=== PATIENT | male | born 1940 | race Caucasian/White ===

== ENCOUNTER → 2018-05-15 | Outpatient (CLI) | payer OTHER ==
[~2018-05-15] MED LIST: AEC81 PO; BISO5TAB2 PO; FLUT1AER IH; LOSA100T58 PO; ROSU20TA PO
== END | disposition home or self-care (01) ==
LOC: RAH 11:32
PROVIDERS: ATTEND Family Medicine
DX: M47.816 Spondylosis without myelopathy or radiculopathy, lumbar region (principal); D18.00 Hemangioma unspecified site
CPT/HCPCS: 72148

== ENCOUNTER 2018-11-28 04:16 | Emergency (ER) | payer OTHER ==
[~2018-11-28 04:16] MED LIST changes: -BISO5TAB2 PO; +BISO5TAB4 PO; -ROSU20TA PO; +ROSU20TA23 PO
[2018-11-28 04:36] LABS: BASOPHILS % (AUTO) 0.9 % (0.0-5.0); EOSINOPHILS % (AUTO) 2.9 % (0.0-8.0); HEMATOCRIT 39.4 % (42-54); LYMPHOCYTES % (AUTO) 15.9 % (21.0-51.0); MEAN CORPUSCULAR HEMOGLOBIN 29.4 pg (27.0-33.0); MEAN CORPUSCULAR HGB CONC 33.9 g/dL (32.0-36.0); MEAN CORPUSCULAR VOLUME 86.7 fL (79-99); MONOCYTES % (AUTO) 5.8 % (3.0-13.0); NEUTROPHILS % (AUTO) 74.5 % (40.0-77.0); PLATELET COUNT (AUTO) 216 K/uL (130-400); RED BLOOD CELL COUNT(AUTO) 4.54 MIL/uL (4.50-6.20); RED CELL DISTRIBUTION WIDTH 14.7 % (11.0-15.5); WHITE BLOOD COUNT (AUTO) 9.9 K/uL (4.8-10.8)
[2018-11-28 04:41] LABS: CREATININE 1.1 mg/dL (0.5-1.5); POTASSIUM 4.1 mmol/L (3.5-5.1)
[2018-11-28 04:51] LABS: B-TYPE NATRIURETIC PEPTIDE 111 pg/mL (0-100)
[2018-11-28 04:53] LABS: ALBUMIN 3.6 g/dL (3.5-5.0); BILIRUBIN,TOTAL 0.4 mg/dL (0.2-1.0); TOTAL PROTEIN, SERUM 7.2 g/dL (6.0-8.3)
[2018-11-28 04:58] LABS: INR 1.05 (0.85-1.15); PARTIAL THROMBOPLASTIN TIME 27.4 SEC (26.3-35.5)
[2018-11-28] MEDS ORDERED: IPRATROPIUM 0.5 MG/2.5 ML INH IH ONE (05:01)
[2018-11-28] MEDS ORDERED: METHYLPREDNISOLONE SOD SUCC 125MG/2ML VIAL ONE (05:15)
[2018-11-28] MEDS ORDERED: SODIUM CHLORIDE 0.9% 1000ML 1,000 ML IV ONE (05:15)
[2018-11-28 05:22] LABS: ABG BASE EXCESS -0.2 mmol/L (-2.0-3.0); ABG HCO3 24.8 mmol/L (21.0-28.0); ABG PCO2 42 mmHg (35-48)
== END 2018-11-28 06:50 | disposition home or self-care (01) ==
LOC: EDH 04:16
DX: J44.1 Chronic obstructive pulmonary disease with (acute) exacerbation (principal); I10 Essential (primary) hypertension; I48.91 Unspecified atrial fibrillation; Z88.6 Allergy status to analgesic agent; Z88.8 Allergy status to other drugs, medicaments and biological substances; Z95.0 Presence of cardiac pacemaker
CPT/HCPCS: 36415; 36600; 71045; 80053; 82550; 82803; 83874; 83880; 84484; 85025; 85610; 85730; 93005; 94640; 96374; 99284; J2930; J7030

== ENCOUNTER 2019-01-21 09:37 | Inpatient (IN) | payer OTHER ==
[~2019-01-21] VITALS: Ht 175.3 cm; Wt 70.1 kg
[~2019-01-21 09:37] MED LIST changes: +APIX5TAB PO; -BISO5TAB4 PO; +DRON400T2 PO; +LEVA0.6333 IH; -LOSA100T58 PO
[2019-01-21 09:56] LABS: BASOPHILS % (AUTO) 0.9 % (0.0-5.0); EOSINOPHILS % (AUTO) 1.2 % (0.0-8.0); HEMATOCRIT 42.7 % (42-54); LYMPHOCYTES % (AUTO) 21.5 % (21.0-51.0); MEAN CORPUSCULAR HEMOGLOBIN 29.6 pg (27.0-33.0); MEAN CORPUSCULAR HGB CONC 32.8 g/dL (32.0-36.0); MEAN CORPUSCULAR VOLUME 90.1 fL (79-99); MONOCYTES % (AUTO) 8.3 % (3.0-13.0); NEUTROPHILS % (AUTO) 68.1 % (40.0-77.0); PLATELET COUNT (AUTO) 239 K/uL (130-400); RED BLOOD CELL COUNT(AUTO) 4.74 MIL/uL (4.50-6.20); RED CELL DISTRIBUTION WIDTH 15.6 % (11.0-15.5); WHITE BLOOD COUNT (AUTO) 13.4 K/uL (4.8-10.8)
[2019-01-21 10:11] LABS: ALBUMIN 3.7 g/dL (3.5-5.0); BILIRUBIN,TOTAL 0.3 mg/dL (0.2-1.0); CREATININE 1.4 mg/dL (0.5-1.5); POTASSIUM 4.3 mmol/L (3.5-5.1); TOTAL PROTEIN, SERUM 7.6 g/dL (6.0-8.3)
[2019-01-21] MEDS ORDERED: ASPIRIN 325 MG TABLET ONE (11:04)
[2019-01-21] MEDS ORDERED: IPRATROPIUM 0.5 MG/2.5 ML INH IH ONE (11:46)
[2019-01-21] MEDS ORDERED: METHYLPREDNISOLONE SOD SUCC 125MG/2ML VIAL ONE (12:08)
[2019-01-21] MEDS ORDERED: SODIUM CHLORIDE 0.9% 1000ML 1,000 ML IV ONE (12:10)
[2019-01-21] MEDS ORDERED: GUAIFENESIN-DM 200/20 MG 10 ML PO PRN (15:00)
[2019-01-21] MEDS ORDERED: HYDRALAZINE HCL 20 MG/ML VIAL IV PRN (15:00)
[2019-01-21] MEDS ORDERED: ONDANSETRON HCL 4 MG/2 ML VIAL IV PRN (15:00)
[2019-01-21] MEDS: CEFTRIAXONE SODIUM 1 GM IV SCH (15:00)
[2019-01-21] MEDS ORDERED: ACETAMINOPHEN 325 MG TAB PO PRN (15:00)
[2019-01-21] MEDS ORDERED: FUROSEMIDE 10 MG/ML 2ML VIAL IV SCH (16:00)
[2019-01-21] MEDS ORDERED: CEFTRIAXONE SODIUM 1 GM ONE (16:52)
[2019-01-21] MEDS ORDERED: FUROSEMIDE 10 MG/ML 2ML VIAL ONE (16:52)
[2019-01-21] MEDS ORDERED: SODIUM CHLORIDE 0.9% 50 ML IV ONE (16:54)
[2019-01-21] MEDS: DRONEDARONE HYDROCHLORIDE 400 MG TABLET PO SCH (17:00)
[2019-01-21] MEDS ORDERED: IPRATROPIUM/ALBUTEROL SULFATE 3 ML SOLUTION IH SCH (18:00)
[2019-01-21] MEDS: IPRATROPIUM 0.5 MG/2.5 ML INH IH SCH ×2 (18:02→22:04)
[2019-01-21] MEDS: ATORVASTATIN CALCIUM 40 MG TABLET PO SCH (21:00)
[2019-01-21] MEDS ORDERED: METHYLPREDNISOLONE SOD SUCC 40MG/ML 1ML IVP SCH (21:00)
[2019-01-21] MEDS: METHYLPREDNISOLONE SOD SUCC 40MG/ML 1ML IVP SCH (21:00)
[2019-01-21] MEDS: FUROSEMIDE 10 MG/ML 2ML VIAL IV SCH (21:00)
[2019-01-21] MEDS: ASPIRIN 81 MG EC TAB PO SCH (21:00)
[2019-01-21] MEDS ORDERED: METHYLPREDNISOLONE SOD SUCC 40MG/ML 1ML ONE (21:19)
[2019-01-21] MEDS ORDERED: ATORVASTATIN CALCIUM 20 MG TABLET ONE (21:20)
[2019-01-21 23:04] LABS: APPEARANCE,URINE Clear (CLEAR); BILIRUBIN,URINE Negative (NEGATIVE); COLOR,URINE Yellow (YELLOW); GLUCOSE, URINE (UA) Negative (NEGATIVE); KETONES,URINE Negative (NEGATIVE); LEUKOCYTE ESTERASE ,URINE Negative (NEGATIVE); NITRATE,URINE Negative (NEGATIVE); OCCULT BLOOD,URINE Negative (NEGATIVE); PROTEIN,URINE Negative (NEGATIVE); UROBILINOGEN,URINE 0.2 mg/dL (0.2-1.0)
[2019-01-22] MEDS ORDERED: PRED20TA3 PO (01:40)
[2019-01-22] MEDS ORDERED: METO25TA6 PO (01:40)
[2019-01-22] MEDS ORDERED: FLUT1BLS3 IH (01:40)
[2019-01-22] MEDS ORDERED: RANI150T7 PO (01:40)
[2019-01-22] MEDS ORDERED: AZIT250T9 PO (01:40)
[2019-01-22] MEDS ORDERED: ASPI-555 PO (01:41)
[2019-01-22] MEDS: IPRATROPIUM 0.5 MG/2.5 ML INH IH SCH ×6 (01:54→22:14)
[2019-01-22] MEDS ORDERED: FUROSEMIDE 10 MG/ML 2ML VIAL ONE ×2 (04:28→08:50)
[2019-01-22 04:46] LABS: BASOPHILS % (AUTO) 0.3 % (0.0-5.0); HEMATOCRIT 37.3 % (42-54); LYMPHOCYTES % (AUTO) 7.5 % (21.0-51.0); MEAN CORPUSCULAR HEMOGLOBIN 29.1 pg (27.0-33.0); MONOCYTES % (AUTO) 0.9 % (3.0-13.0); NEUTROPHILS % (AUTO) 91.3 % (40.0-77.0); PLATELET COUNT (AUTO) 201 K/uL (130-400); RED BLOOD CELL COUNT(AUTO) 4.24 MIL/uL (4.50-6.20); RED CELL DISTRIBUTION WIDTH 15.7 % (11.0-15.5); WHITE BLOOD COUNT (AUTO) 6.6 K/uL (4.8-10.8)
[2019-01-22 05:04] LABS: ALBUMIN 3.1 g/dL (3.5-5.0); BILIRUBIN,TOTAL 0.4 mg/dL (0.2-1.0); CREATININE 1.1 mg/dL (0.5-1.5); POTASSIUM 4.3 mmol/L (3.5-5.1); TOTAL PROTEIN, SERUM 6.4 g/dL (6.0-8.3)
[2019-01-22] MEDS ORDERED: IPRATROPIUM 0.5 MG/2.5 ML INH IH ONE ×3 (06:49→13:38)
[2019-01-22 07:30] VITALS: BP 128/57
[2019-01-22] MEDS: DRONEDARONE HYDROCHLORIDE 400 MG TABLET PO SCH ×3 (08:00→17:40)
[2019-01-22] MEDS ORDERED: METHYLPREDNISOLONE SOD SUCC 40MG/ML 1ML ONE (08:50)
[2019-01-22] MEDS ORDERED: ENOXAPARIN SODIUM 30 MG/0.3 ML SQ ONE (08:50)
[2019-01-22] MEDS ORDERED: FAMOTIDINE/PF 20 MG/2 ML VIAL IV ONE (08:51)
[2019-01-22] MEDS ORDERED: ENOXAPARIN SODIUM 30 MG/0.3 ML SQ SCH (09:00)
[2019-01-22] MEDS: FAMOTIDINE/PF 20 MG/2 ML VIAL IV SCH (09:23)
[2019-01-22] MEDS: FUROSEMIDE 10 MG/ML 2ML VIAL IV SCH ×2 (09:23→20:52)
[2019-01-22] MEDS: METHYLPREDNISOLONE SOD SUCC 40MG/ML 1ML IVP SCH ×2 (09:23→17:40)
[2019-01-22 10:00] VITALS: BP 124/66
[2019-01-22] MEDS: APIXABAN 5 MG TABLET PO SCH ×2 (10:21→20:51)
[2019-01-22] MEDS ORDERED: IOHEXOL 350 MG/ML 100ML INFUS..BTL IV ONE (11:10)
--- NOTE | 2019-01-22 11:20 | NUR ---
SPOKE WITH SHEFALI TRINH, ANESTHESIA, RE:CARDIOVERSION. VERBALIZED UNDERSTANDING.
[2019-01-22 15:00] VITALS: BP 146/78
--- NOTE | 2019-01-22 15:46 | NUR ---
DR. Cynthia MADRIGAL IN ROOM SPEAKING WITH PT. AND PT.'S SPOUSE AT BEDSIDE RE:CANCELLATION OF CARDIOVERSION AND MEDICATION THERAPY TO BE INITIATED. QUESTIONS ANSWERED BY DR. Cynthia MADRIGAL, PT. AND SPOUSE AT BEDSIDE VERBALIZED MUTUAL UNDERSTANDING.
[2019-01-22] MEDS ORDERED: CEFTRIAXONE SODIUM 1 GM ONE (15:58)
[2019-01-22] MEDS: CEFTRIAXONE SODIUM 1 GM IV SCH (16:03)
--- NOTE | 2019-01-22 16:12 | NUR ---
TO ROOM 205 VIA BED WITH BELONGINGS ACCOMPANIED BY THIS NURSE. PT. DENIES ANY C/O SOB, DENIES ANY CURRENT PAIN ON TRANSPORT.
[2019-01-22 16:23] VITALS: BP 165/99
[2019-01-22] MEDS: VERAPAMIL HCL 80 MG TABLET PO SCH ×2 (17:40→23:16)
[2019-01-22 19:55] VITALS: BP 149/85
[2019-01-22] MEDS: ASPIRIN 81 MG EC TAB PO SCH (20:51)
[2019-01-22] MEDS: ATORVASTATIN CALCIUM 40 MG TABLET PO SCH (20:51)
[2019-01-23 00:04] VITALS: BP 116/95
[2019-01-23] MEDS: METHYLPREDNISOLONE SOD SUCC 40MG/ML 1ML IVP SCH ×2 (01:12→10:02)
[2019-01-23] MEDS: IPRATROPIUM 0.5 MG/2.5 ML INH IH SCH ×3 (02:14→10:23)
[2019-01-23 04:04] VITALS: BP 130/90
[2019-01-23 04:47] LABS: BASOPHILS % (AUTO) 0.1 % (0.0-5.0); EOSINOPHILS % (AUTO) 0.1 % (0.0-8.0); HEMATOCRIT 39.3 % (42-54); LYMPHOCYTES % (AUTO) 4.5 % (21.0-51.0); MEAN CORPUSCULAR HEMOGLOBIN 29.4 pg (27.0-33.0); MEAN CORPUSCULAR VOLUME 88.9 fL (79-99); MONOCYTES % (AUTO) 2.2 % (3.0-13.0); NEUTROPHILS % (AUTO) 93.1 % (40.0-77.0); PLATELET COUNT (AUTO) 216 K/uL (130-400); RED BLOOD CELL COUNT(AUTO) 4.42 MIL/uL (4.50-6.20); RED CELL DISTRIBUTION WIDTH 15.4 % (11.0-15.5); WHITE BLOOD COUNT (AUTO) 12.2 K/uL (4.8-10.8)
[2019-01-23 04:57] LABS: ALBUMIN 3.2 g/dL (3.5-5.0); BILIRUBIN,TOTAL 0.3 mg/dL (0.2-1.0); CREATININE 1.2 mg/dL (0.5-1.5); TOTAL PROTEIN, SERUM 6.4 g/dL (6.0-8.3)
[2019-01-23 07:38] VITALS: BP 128/82
[2019-01-23] MEDS ORDERED: VERA120T13 PO ×2 (08:54)
[2019-01-23] MEDS: FAMOTIDINE/PF 20 MG/2 ML VIAL IV SCH (09:00)
[2019-01-23] MEDS: DRONEDARONE HYDROCHLORIDE 400 MG TABLET PO SCH (10:01)
[2019-01-23] MEDS: APIXABAN 5 MG TABLET PO SCH (10:01)
[2019-01-23] MEDS: VERAPAMIL HCL 80 MG TABLET PO SCH (10:01)
[2019-01-23] MEDS: FUROSEMIDE 10 MG/ML 2ML VIAL IV SCH (10:02)
[2019-01-23] MEDS ORDERED: AMOX-429 PO ×2 (11:06)
[2019-01-23] MEDS ORDERED: IPRNEB IH ×2 (11:06)
[2019-01-23 11:54] VITALS: BP 138/76
--- NOTE | 2019-01-23 16:00 | NUR ---
Patient changed his mind about receiving FLu vaccine. He voiced that he will just get it in [facility].
--- NOTE | 2019-01-23 16:10 | NUR ---
DC PLAN PATIENT DISCHARGED NO NEEDS VERBALIZED BY NURSING STAFF. Addendum: 01/23/19 at 1623 by MARIANNE JAIN RN CM Amended: Links added.
[2019-01-27] MEDS ORDERED: VERA180T12 PO ×2 (08:32)
[2019-01-27] MEDS ORDERED: AMOX-429 PO ×2 (14:08)
== END 2019-01-23 12:30 | disposition home or self-care (01) | DRG 291 ==
LOC: EDH 09:37 → EDHIP 14:58 → 2AH 01-22 16:24
PROVIDERS: ADMIT Hospitalist; ATTEND Hospitalist
DX: I11.0 Hypertensive heart disease with heart failure (principal); I50.21 Acute systolic (congestive) heart failure; J44.1 Chronic obstructive pulmonary disease with (acute) exacerbation; I48.0 Paroxysmal atrial fibrillation; D72.829 Elevated white blood cell count, unspecified; Z82.0 Family history of epilepsy and other diseases of the nervous system; E16.2 Hypoglycemia, unspecified; Z99.81 Dependence on supplemental oxygen; I95.9 Hypotension, unspecified; I25.10 Atherosclerotic heart disease of native coronary artery without angina pectoris; E78.5 Hyperlipidemia, unspecified; Z79.01 Long term (current) use of anticoagulants; Z79.899 Other long term (current) drug therapy; Z82.3 Family history of stroke; Z82.49 Family history of ischemic heart disease and other diseases of the circulatory system; Z82.5 Family history of asthma and other chronic lower respiratory diseases; Z83.3 Family history of diabetes mellitus; Z95.0 Presence of cardiac pacemaker; Z95.1 Presence of aortocoronary bypass graft; Z87.891 Personal history of nicotine dependence; Z88.5 Allergy status to narcotic agent; Z88.8 Allergy status to other drugs, medicaments and biological substances
CPT/HCPCS: 36415; 71045; 71250; 71275; 80053; 81003; 82550; 82948; 83735; 83880; 84484; 85025; 85378; 85610; 85730; 87040; 93005; 94640; 94664; 99291; G0378; J0696; J1650; J1940; J2920; J2930; J3490; J7030; Q2035; Q9967

== ENCOUNTER 2019-01-25 16:42 | Inpatient (IN) | payer OTHER ==
[~2019-01-25] VITALS: Ht 175.3 cm; Wt 72.6 kg
[~2019-01-25 16:42] MED LIST changes: +AMOX-429 PO; +ASPI-555 PO; +FLUT1BLS3 IH; +IPRNEB IH; -LEVA0.6333 IH; +PRED20TA3 PO; +RANI150T7 PO; +VERA120T13 PO
[2019-01-25 17:21] LABS: BASOPHILS % (AUTO) 0.5 % (0.0-5.0); EOSINOPHILS % (AUTO) 0.4 % (0.0-8.0); HEMATOCRIT 42.2 % (42-54); LYMPHOCYTES % (AUTO) 14.3 % (21.0-51.0); MEAN CORPUSCULAR HEMOGLOBIN 29.2 pg (27.0-33.0); MEAN CORPUSCULAR HGB CONC 32.9 g/dL (32.0-36.0); MEAN CORPUSCULAR VOLUME 88.7 fL (79-99); MONOCYTES % (AUTO) 8.3 % (3.0-13.0); NEUTROPHILS % (AUTO) 76.5 % (40.0-77.0); NUCLEATED RED BLOOD CELLS 0.1 % (0.0-0.19); PLATELET COUNT (AUTO) 255 K/uL (130-400); RED BLOOD CELL COUNT(AUTO) 4.76 MIL/uL (4.50-6.20); WHITE BLOOD COUNT (AUTO) 12.3 K/uL (4.8-10.8)
[2019-01-25 17:32] LABS: INR 1.03 (0.85-1.15); PARTIAL THROMBOPLASTIN TIME 26.8 SEC (26.3-35.5); PROTHROMBIN TIME 10.8 SEC (9.6-11.6)
[2019-01-25 17:38] LABS: ALBUMIN 3.5 g/dL (3.5-5.0); BILIRUBIN,TOTAL 0.5 mg/dL (0.2-1.0); CREATININE 1.1 mg/dL (0.5-1.5); POTASSIUM 4.6 mmol/L (3.5-5.1); TOTAL PROTEIN, SERUM 6.8 g/dL (6.0-8.3)
[2019-01-25 17:47] LABS: B-TYPE NATRIURETIC PEPTIDE 233 pg/mL (0-100)
[2019-01-25] MEDS ORDERED: IPRATROPIUM 0.5 MG/2.5 ML INH IH ONE (18:51)
[2019-01-25] MEDS ORDERED: NON-FORMULARY MEDICATION 1 EACH (Ranitidine HCl 150 MG) PO SCH (20:45)
[2019-01-25] MEDS ORDERED: LABETALOL 20 MG/4 ML DISP.SYRIN IV PRN (20:45)
[2019-01-25] MEDS ORDERED: PREDNISONE 20 MG TABLET PO SCH (20:45)
[2019-01-25] MEDS ORDERED: RANITIDINE HCL 15 MG/1 ML ONE (20:56)
[2019-01-25] MEDS ORDERED: APIXABAN 2.5 MG TABLET PO ONE (20:56)
[2019-01-25] MEDS ORDERED: AMOXICILLIN/POTASSIUM CLAV 875-125 TABLET PO ONE (20:57)
[2019-01-25] MEDS ORDERED: ASPIRIN 81 MG EC TAB ONE (20:57)
[2019-01-25] MEDS ORDERED: PREDNISONE 20 MG TABLET ONE (20:57)
[2019-01-25] MEDS: ASPIRIN 81 MG EC TAB PO SCH (21:00)
[2019-01-25] MEDS: ATORVASTATIN CALCIUM 40 MG TABLET PO SCH (21:00)
[2019-01-25] MEDS: APIXABAN 5 MG TABLET PO SCH (21:00)
[2019-01-25] MEDS: AMOXICILLIN/POTASSIUM CLAV 875-125 TABLET PO SCH (21:00)
[2019-01-25] MEDS: IPRATROPIUM 0.5 MG/2.5 ML INH IH SCH (21:11)
[2019-01-25 22:14] VITALS: BP 123/79
[2019-01-26] VITALS (7 sets, daily range): BP systolic 114–134; BP diastolic 63–81
[2019-01-26] MEDS: IPRATROPIUM 0.5 MG/2.5 ML INH IH SCH ×6 (02:30→22:05)
[2019-01-26] MEDS: APIXABAN 5 MG TABLET PO SCH ×2 (08:52→20:57)
[2019-01-26] MEDS: DRONEDARONE HYDROCHLORIDE 400 MG TABLET PO SCH ×2 (08:52→17:19)
[2019-01-26] MEDS: AMOXICILLIN/POTASSIUM CLAV 875-125 TABLET PO SCH ×2 (08:52→20:57)
[2019-01-26] MEDS ORDERED: NON-FORMULARY MEDICATION 1 EACH (Fluticasone/Umeclidin/Vilanter (Trelegy Ellipta 100-62.5- IH SCH (09:00)
[2019-01-26] MEDS ORDERED: FLU VACC QS2019-20 36MOS UP/PF 60 MCG/0.5 ML ML IM ONE (09:00)
[2019-01-26] MEDS ORDERED: VERAPAMIL HCL 240 MG SRTAB PO SCH (09:00)
[2019-01-26] MEDS ORDERED: POLYETHYLENE GLYCOL 3350 17 GM POWD.PACK PO SCH (11:00)
[2019-01-26] MEDS ORDERED: VERAPAMIL HCL 80 MG TABLET PO SCH (11:00)
[2019-01-26] MEDS ORDERED: FLUTICASONE/VILANTEROL 1 EACH AER.POW.BA IH SCH (12:00)
[2019-01-26] MEDS ORDERED: POLYETHYLENE GLYCOL 3350 17 GM POWD.PACK PO PRN (12:45)
[2019-01-26] MEDS ORDERED: OXYMETAZOLINE HCL SPRAY 15 ML BOTTLE EN PRN (13:15)
--- NOTE | 2019-01-26 15:35 | NUR ---
RD NOTIFICATION Dx: Tachycardia. Hx: COPD, AFIB, HTN. Diet: Heart Healthy. PO intake 75% and appetite is improving as per pt. No difficulty chewing or swallowing. No complaints of N/V/D. Pt with Hx of Constipation, takes stool softeners regularly. No significant weight changes noted. RD recommends continue current diet Offer Ensure QD RD will follow up and monitor as needed, thank you. Addendum: 01/26/19 at [address] Amended: Links added.
[2019-01-26] MEDS: VERAPAMIL HCL 80 MG TABLET PO SCH ×2 (17:18→22:22)
[2019-01-26] MEDS: BUDESONIDE 0.5 MG/2 ML INH IH SCH (18:38)
[2019-01-26] MEDS: ASPIRIN 81 MG EC TAB PO SCH (20:57)
[2019-01-26] MEDS: ATORVASTATIN CALCIUM 40 MG TABLET PO SCH (20:58)
[2019-01-26] MEDS ORDERED: FAMOTIDINE 20MG TAB 20 MG TAB ONE (22:59)
[2019-01-26] MEDS ORDERED: RANITIDINE HCL 15 MG/1 ML PO SCH (23:00)
[2019-01-26] MEDS: FAMOTIDINE 20MG TAB 20 MG TAB PO SCH (23:54)
[2019-01-27] MEDS: IPRATROPIUM 0.5 MG/2.5 ML INH IH SCH ×4 (02:07→13:20)
[2019-01-27 03:08] VITALS: BP 131/73
[2019-01-27] MEDS: VERAPAMIL HCL 80 MG TABLET PO SCH ×2 (06:08→13:15)
[2019-01-27] MEDS: BUDESONIDE 0.5 MG/2 ML INH IH SCH (06:34)
[2019-01-27 07:00] VITALS: BP 112/66
[2019-01-27] MEDS ORDERED: VERA180T12 PO (08:32)
[2019-01-27] MEDS: FAMOTIDINE 20MG TAB 20 MG TAB PO SCH (09:00)
[2019-01-27] MEDS: AMOXICILLIN/POTASSIUM CLAV 875-125 TABLET PO SCH (09:53)
[2019-01-27] MEDS: APIXABAN 5 MG TABLET PO SCH (09:54)
[2019-01-27] MEDS: DRONEDARONE HYDROCHLORIDE 400 MG TABLET PO SCH (09:55)
[2019-01-27 11:00] VITALS: BP 139/85
[2019-01-27] MEDS ORDERED: AMOX-429 PO (14:08)
[2019-01-27] MEDS ORDERED: FLU VACC QS2019-20 36MOS UP/PF 60 MCG/0.5 ML ML IM ONE (14:52)
--- NOTE | 2019-01-27 14:55 | NUR ---
DISCHARGE VERBAL & WRITTEN DISCHARGE INSTRUCTIONS REVIEWED & GIVEN TO PT & SPOUSE. QUESTIONS ENCOURAGED & CLARIFIED. PROPER CARE & MGT OF AFIB REVIEWED. NEW PRESCRIBED MEDICATIONS REVIEWED. PRESCRIPTION X 2 GIVEN TO PT; SIGNED COPY PLACED IN CHART. TELE MAEVE REMOVED. IV DISCONTINUED. PT & SPOUSE TO GATHER PERSONAL BELONGINGS. WILL NOTIFY STAFF WHEN READY TO BE TAKEN TO PRIVATE VEHICLE.
--- NOTE | 2019-01-27 15:15 | NUR ---
DISCHARGE PT TAKEN TO PRIVATE VEHICLE VIA WC BY Saul CALVIN PCP, ACCOMPANIED BY SPOUSE. NO DISTRESS NOTED.
--- NOTE | 2019-01-28 09:56 | NUR ---
DC PLAN PATIENT IN BATHROOM WHEN VISITED. NO NEEDS VERBALIZED BY NURSING STAFF. PATIENT DISCHARGED HOME ALREADY GONE. Addendum: 01/28/19 at 1002 by MARIANNE JAIN RN CM Amended: Links added.
== END 2019-01-27 15:23 | disposition home or self-care (01) | DRG 202 ==
LOC: EDH 16:42 → EDHIP 20:22 → 2DH 22:04
PROVIDERS: ADMIT Internal Medicine; ATTEND Internal Medicine
DX: J20.9 Acute bronchitis, unspecified (principal); I48.19 Other persistent atrial fibrillation; D68.69 Other thrombophilia; J44.1 Chronic obstructive pulmonary disease with (acute) exacerbation; J44.0 Chronic obstructive pulmonary disease with (acute) lower respiratory infection; I45.2 Bifascicular block; I48.92 Unspecified atrial flutter; T45.515A Adverse effect of anticoagulants, initial encounter; I10 Essential (primary) hypertension; I25.10 Atherosclerotic heart disease of native coronary artery without angina pectoris; E78.5 Hyperlipidemia, unspecified; R04.0 Epistaxis; I45.10 Unspecified right bundle-branch block; Z82.49 Family history of ischemic heart disease and other diseases of the circulatory system; Z83.3 Family history of diabetes mellitus; Z86.79 Personal history of other diseases of the circulatory system; Z79.01 Long term (current) use of anticoagulants; Z95.1 Presence of aortocoronary bypass graft; Y92.89 Other specified places as the place of occurrence of the external cause; Z82.0 Family history of epilepsy and other diseases of the nervous system; Z82.3 Family history of stroke; Z82.5 Family history of asthma and other chronic lower respiratory diseases; Z87.891 Personal history of nicotine dependence; Z95.0 Presence of cardiac pacemaker; Z95.5 Presence of coronary angioplasty implant and graft; Z99.81 Dependence on supplemental oxygen; Z23 Encounter for immunization
CPT/HCPCS: 36415; 71045; 80053; 82550; 83880; 84484; 85025; 85610; 85730; 93005; 94640; 94664; G0378; Q2035

== ENCOUNTER 2019-02-20 05:43 | Observation (INO) | payer OTHER ==
[2019-02-17 09:09] VITALS: BP 135/66
[2019-02-17 09:22] LABS: BASOPHILS % (AUTO) 0.5 % (0.0-5.0); EOSINOPHILS % (AUTO) 1.4 % (0.0-8.0); HEMATOCRIT 39.9 % (42-54); LYMPHOCYTES % (AUTO) 14.8 % (21.0-51.0); MEAN CORPUSCULAR HEMOGLOBIN 29.4 pg (27.0-33.0); MEAN CORPUSCULAR HGB CONC 33.1 g/dL (32.0-36.0); MONOCYTES % (AUTO) 7.1 % (3.0-13.0); NEUTROPHILS % (AUTO) 76.2 % (40.0-77.0); PLATELET COUNT (AUTO) 222 K/uL (130-400); RED BLOOD CELL COUNT(AUTO) 4.48 MIL/uL (4.50-6.20); RED CELL DISTRIBUTION WIDTH 15.4 % (11.0-15.5); WHITE BLOOD COUNT (AUTO) 10.3 K/uL (4.8-10.8)
[2019-02-17 09:29] LABS: POTASSIUM 4.3 mmol/L (3.5-5.1)
[2019-02-17 09:32] LABS: INR 1.05 (0.85-1.15); PARTIAL THROMBOPLASTIN TIME 28.5 SEC (26.3-35.5)
[2019-02-20] VITALS (19 sets, daily range): BP systolic 112–177; BP diastolic 57–90
[~2019-02-20] VITALS: Ht 177.8 cm; Wt 71.8 kg
[2019-02-20] MEDS: CEFAZOLIN SODIUM 1 GM VIAL IVP SCH (05:00)
[~2019-02-20 05:43] MED LIST changes: -AEC81 PO; -AMOX-429 PO; -PRED20TA3 PO; -RANI150T7 PO; -VERA120T13 PO; +VERA180T12 PO
[2019-02-20] MEDS ORDERED: SODIUM CHLORIDE 0.9% 1000ML 1,000 ML IV ONE (06:45)
[2019-02-20] MEDS ORDERED: LIDOCAINE HCL MPF 1% 5ML VIAL ONE (13:03)
[2019-02-20] MEDS ORDERED: NOREPINEPHRINE BITARTRATE 1 MG/1 ML ML IV ONE (13:03)
[2019-02-20] MEDS ORDERED: MIDAZOLAM HCL 1 MG/ML 2ML VIAL ONE (13:03)
[2019-02-20] MEDS ORDERED: ROCURONIUM 10MG/1ML SYR 10 MG/ML ML ONE (13:04)
[2019-02-20] MEDS ORDERED: PROPOFOL 10 MG/ML 20ML VIAL IV ONE (13:04)
[2019-02-20] MEDS ORDERED: LIDOCAINE HCL 1% 20 ML VIAL ONE (13:12)
[2019-02-20] MEDS ORDERED: PHENYLEPHRINE HCL 10 MG/ML 1ML VIAL IV ONE ×2 (13:29→13:45)
[2019-02-20] MEDS ORDERED: BUPIVACAINE/PF 0.25% 30ML VIAL IJ ONE (13:35)
[2019-02-20] MEDS ORDERED: LIDOCAINE HCL 1% MDV 50ML VIAL ONE (13:35)
[2019-02-20] MEDS ORDERED: CEFAZOLIN SODIUM 1 GM VIAL ONE (13:36)
[2019-02-20] MEDS ORDERED: IOHEXOL-350 50ML VIAL IV ONE (14:08)
[2019-02-20] MEDS ORDERED: LIDOCAINE HCL 2% 20ML ONE (15:57)
[2019-02-20] MEDS ORDERED: GLYCOPYRROLATE 0.2 MG/ML 5 ML VIAL ONE (16:59)
[2019-02-20] MEDS ORDERED: NEOSTIGMINE 5MG/5ML SYR IV ONE (16:59)
[2019-02-20] MEDS ORDERED: HYDRALAZINE HCL 20 MG/ML VIAL ONE (17:08)
[2019-02-20] MEDS: IPRATROPIUM 0.5 MG/2.5 ML INH IH SCH ×2 (18:01→22:00)
[2019-02-20] MEDS: BUDESONIDE 0.5 MG/2 ML INH IH SCH (18:01)
[2019-02-20] MEDS ORDERED: ACETAMINOPHEN EXTRA STRENGTH 500 MG TABLET PO PRN (19:45)
[2019-02-20] MEDS ORDERED: TRAMADOL HCL 50 MG TABLET PO PRN (19:45)
[2019-02-20] MEDS ORDERED: ONDANSETRON HCL 4 MG/2 ML VIAL IVP PRN (19:45)
[2019-02-20] MEDS: FAMOTIDINE 20MG TAB 20 MG TAB PO SCH (20:45)
[2019-02-20] MEDS: TRAMADOL HCL 50 MG TABLET PO PRN (20:46)
[2019-02-20] MEDS ORDERED: ATORVASTATIN CALCIUM 40 MG TABLET PO SCH (21:00)
[2019-02-20 21:15] LABS: ABG BASE EXCESS -0.1 mmol/L (-2.0-3.0); ABG HCO3 24.5 mmol/L (21.0-28.0); ABG OXYGEN SATURATION 98.1 % (95.0-99.0); ABG PCO2 40 mmHg (35-48)
[2019-02-21 00:28] VITALS: BP 107/65
[2019-02-21] MEDS: IPRATROPIUM 0.5 MG/2.5 ML INH IH SCH ×3 (01:15→10:01)
[2019-02-21 03:53] VITALS: BP 100/61
[2019-02-21 04:05] LABS: BASOPHILS % (AUTO) 0.4 % (0.0-5.0); EOSINOPHILS % (AUTO) 0.1 % (0.0-8.0); HEMATOCRIT 34.2 % (42-54); MEAN CORPUSCULAR HEMOGLOBIN 29.3 pg (27.0-33.0); MEAN CORPUSCULAR HGB CONC 32.9 g/dL (32.0-36.0); MEAN CORPUSCULAR VOLUME 89.1 fL (79-99); MONOCYTES % (AUTO) 5.8 % (3.0-13.0); NEUTROPHILS % (AUTO) 87.7 % (40.0-77.0); PLATELET COUNT (AUTO) 154 K/uL (130-400); RED BLOOD CELL COUNT(AUTO) 3.84 MIL/uL (4.50-6.20); RED CELL DISTRIBUTION WIDTH 15.4 % (11.0-15.5); WHITE BLOOD COUNT (AUTO) 9.7 K/uL (4.8-10.8)
[2019-02-21 04:34] LABS: ALBUMIN 2.9 g/dL (3.5-5.0); BILIRUBIN,TOTAL 0.4 mg/dL (0.2-1.0); CREATININE 1.1 mg/dL (0.5-1.5); POTASSIUM 4.3 mmol/L (3.5-5.1); TOTAL PROTEIN, SERUM 5.9 g/dL (6.0-8.3)
[2019-02-21] MEDS: CEFAZOLIN SODIUM 1 GM VIAL IVP SCH (04:46)
[2019-02-21] MEDS: TRAMADOL HCL 50 MG TABLET PO PRN (04:51)
[2019-02-21] MEDS: BUDESONIDE 0.5 MG/2 ML INH IH SCH (05:30)
[2019-02-21 07:30] VITALS: BP 118/67
[2019-02-21] MEDS ORDERED: DRONEDARONE HYDROCHLORIDE 400 MG TABLET PO SCH (08:00)
[2019-02-21] MEDS ORDERED: ASPIRIN 81 MG EC TAB PO SCH (09:00)
[2019-02-21] MEDS ORDERED: NON-FORMULARY MEDICATION 1 EACH (Fluticasone/Umeclidin/Vilanter (Trelegy Ellipta 100-62.5- IH SCH (09:00)
[2019-02-21] MEDS ORDERED: HOME MEDICATION 1 EACH IH SCH ×2 (09:00→12:00)
[2019-02-21] MEDS: FAMOTIDINE 20MG TAB 20 MG TAB PO SCH (09:36)
[2019-02-21 11:30] VITALS: BP 131/80
[2019-02-21] MEDS ORDERED: FLUTICASONE/VILANTEROL 1 EACH AER.POW.BA IH SCH (12:00)
--- NOTE | 2019-02-21 15:20 | NUR ---
DISCHARGE HOME DISCHARGE INSTRUCTIONS GIVEN TO PATIENT. S/P BIV PACEMAKER LEFT CHEST AND CARDIAC ABLATION. PATIENT INSTRUCTED TO RESUME ELIQUIS ON Saturday02/23/[address] MADRIGAL. NO NEW PRESCRIPTIONS GIVEN. IV REMOVED. PATIENT HAS OWN HOME O2 READY AT BEDSIDE. VERBALIZED UNDERSTANDING.
== END 2019-02-21 15:03 | disposition home or self-care (01) ==
LOC: DAH 05:43 → 2AH 17:01
PROVIDERS: ADMIT Internal Medicine; ATTEND Internal Medicine
DX: I48.0 Paroxysmal atrial fibrillation (principal); I44.2 Atrioventricular block, complete; I42.9 Cardiomyopathy, unspecified; I25.10 Atherosclerotic heart disease of native coronary artery without angina pectoris; J44.9 Chronic obstructive pulmonary disease, unspecified; I10 Essential (primary) hypertension; E78.5 Hyperlipidemia, unspecified; I71.4 Abdominal aortic aneurysm, without rupture; Z95.0 Presence of cardiac pacemaker; Z95.1 Presence of aortocoronary bypass graft; Z51.5 Encounter for palliative care; Z99.81 Dependence on supplemental oxygen; Z79.01 Long term (current) use of anticoagulants; Z79.82 Long term (current) use of aspirin; Z79.899 Other long term (current) drug therapy; Z88.5 Allergy status to narcotic agent; Z88.8 Allergy status to other drugs, medicaments and biological substances
CPT/HCPCS: 33225; 33229; 36415 ×2; 71045; 80048; 80053; 82803; 85025 ×2; 85610; 85730; 93005; 93619; 93650; 94640 ×4; 94664; 96374; 96375; A4215; A4216; A4221; A4222; A4223; A4649 ×2; A5120; C1732; C1769; C1893; C1894; C1900; C2621; G0378 ×21; J0360; J0690 ×2; J1644; J2250; J2370 ×2; J2405; J2704; J2710; J3490 ×6; J7030; Q9967

== ENCOUNTER 2019-03-25 06:14 | Day surgery (SDC) | payer OTHER ==
[~2019-03-25] VITALS: Ht 175.3 cm; Wt 70.2 kg
[~2019-03-25 06:14] MED LIST changes: -VERA180T12 PO
[2019-03-25] MEDS ORDERED: SODIUM CHLORIDE 0.9% 1000ML 1,000 ML IV ONE (06:15)
[2019-03-25 07:20] VITALS: BP 128/64
[2019-03-25] MEDS ORDERED: DALIRESP (07:33)
[2019-03-25] MEDS ORDERED: PROPOFOL 10 MG/ML 20ML VIAL IV ONE (08:27)
[2019-03-25 08:57] VITALS: BP 85/54
[2019-03-25 09:02] VITALS: BP 94/52
[2019-03-25 09:07] VITALS: BP 89/55
[2019-03-25 09:12] VITALS: BP 120/58
[2019-03-25 09:17] VITALS: BP 127/58
--- NOTE | 2019-03-25 09:30 | NUR ---
PT LEFT VIA WHEELCHAIR IN PVT CAR WITH D/C INSTRUCTIONS GIVEN TO ALONG WITH F/U APPT. PT STABLE AND NO COMPLICATIONS
== END 2019-03-25 09:30 | disposition home or self-care (01) ==
LOC: ENDO 06:14 → DAH 06:14 → ENDO 09:30
PROVIDERS: ATTEND Internal Medicine Gastroenterology
DX: Z12.11 Encounter for screening for malignant neoplasm of colon (principal); D12.5 Benign neoplasm of sigmoid colon; K57.30 Diverticulosis of large intestine without perforation or abscess without bleeding; I10 Essential (primary) hypertension; E78.5 Hyperlipidemia, unspecified; J44.9 Chronic obstructive pulmonary disease, unspecified; I25.10 Atherosclerotic heart disease of native coronary artery without angina pectoris; I48.91 Unspecified atrial fibrillation; Z88.5 Allergy status to narcotic agent; Z88.8 Allergy status to other drugs, medicaments and biological substances; Z86.010 Personal history of colon polyps; Z79.01 Long term (current) use of anticoagulants; Z79.899 Other long term (current) drug therapy; Z98.890 Other specified postprocedural states; Z72.89 Other problems related to lifestyle; Z79.82 Long term (current) use of aspirin; Z82.49 Family history of ischemic heart disease and other diseases of the circulatory system; Z83.3 Family history of diabetes mellitus
CPT/HCPCS: 45385; 88305; A4215 ×2; A4221; A4222; A4223; A4606; A4615; A4663; J2704; J7030

== ENCOUNTER 2019-04-23 07:54 | Day surgery (SDC) | payer OTHER ==
[2019-04-21 15:17] VITALS: BP 172/82
[2019-04-21 15:18] LABS: BASOPHILS % (AUTO) 0.6 % (0.0-5.0); EOSINOPHILS % (AUTO) 1.7 % (0.0-8.0); HEMATOCRIT 39.9 % (42-54); LYMPHOCYTES % (AUTO) 19.2 % (21.0-51.0); MEAN CORPUSCULAR HEMOGLOBIN 28.6 pg (27.0-33.0); MEAN CORPUSCULAR HGB CONC 31.1 g/dL (32.0-36.0); MEAN CORPUSCULAR VOLUME 92.1 fL (79-99); MONOCYTES % (AUTO) 5.9 % (3.0-13.0); NEUTROPHILS % (AUTO) 72.3 % (40.0-77.0); PLATELET COUNT (AUTO) 176 K/uL (130-400); RED BLOOD CELL COUNT(AUTO) 4.33 MIL/uL (4.50-6.20); RED CELL DISTRIBUTION WIDTH 13.2 % (11.0-15.5); WHITE BLOOD COUNT (AUTO) 7.2 K/uL (4.8-10.8)
[2019-04-21 15:33] LABS: ALBUMIN 3.9 g/dL (3.5-5.0); BILIRUBIN,DIRECT 0.1 mg/dL (0.0-0.3); BILIRUBIN,TOTAL 0.4 mg/dL (0.2-1.0); CREATININE 1.2 mg/dL (0.5-1.5); POTASSIUM 4.5 mmol/L (3.5-5.1); TOTAL PROTEIN, SERUM 7.3 g/dL (6.0-8.3)
--- NOTE | 2019-04-22 17:55 | NUR ---
ABNORMAL LABS ABNORMAL CBC REPORTED TO DR. ENCINAS, NO FURTHER ORDERS, MAY PROCEED.
--- NOTE | 2019-04-22 17:56 | NUR ---
EKG EKG REPORTED TO DR. GREEN, NO FURTHER ORDERS, MAY PROCEED.
[2019-04-23] VITALS (15 sets, daily range): BP systolic 136–157; BP diastolic 70–86
[~2019-04-23] VITALS: Ht 177.8 cm; Wt 71.3 kg
[~2019-04-23 07:54] MED LIST changes: +DALIRESP; -FLUT1AER IH; -IPRNEB IH; +ROFL250T PO; +SODIUM CHLORIDE 0.9% 500ML 500 ML IV SCH
[2019-04-23] MEDS ORDERED: LACTATED RINGERS 1000ML 1,000 ML IV ONE (08:51)
[2019-04-23] MEDS ORDERED: LIDOCAINE PF 2% 5ML ABBOJECT ONE (10:02)
[2019-04-23] MEDS ORDERED: ROCURONIUM 10MG/1ML SYR 10 MG/ML ML ONE (10:02)
[2019-04-23] MEDS ORDERED: HEPARIN SODIUM 1000UNIT/ML 10ML VIAL ONE (10:02)
[2019-04-23] MEDS ORDERED: PROPOFOL 10 MG/ML 20ML VIAL IV ONE (10:02)
[2019-04-23] MEDS ORDERED: FENTANYL CITRATE PF 50 MCG/1 ML 2ML VIAL ONE ×2 (10:03→10:40)
[2019-04-23] MEDS ORDERED: DEXAMETHASONE SOD PHOSPHATE 10MG/ML 1ML VIAL ONE (10:32)
[2019-04-23] MEDS ORDERED: ONDANSETRON HCL 4 MG/2 ML VIAL ONE ×3 (10:39→13:17)
[2019-04-23] MEDS ORDERED: GLYCOPYRROLATE 1 MG/5 ML SYRINGE ONE (11:01)
[2019-04-23] MEDS ORDERED: NEOSTIGMINE 5MG/5ML SYR IV ONE (11:01)
[2019-04-23] MEDS ORDERED: MEPERIDINE-PF 25 MG/ML SYG ONE ×2 (12:00→12:09)
--- NOTE | 2019-04-23 13:00 | NUR ---
PATIENT ARRIVED TO DAY PATIENT VIA STRETCHER BY SOFIA PERRY AND SOFIA RAMIREZ. PATIENT AAOX3, RESPIRATIONS UNLABORED, VITAL SIGNS STABLE. DENIES ANY PAIN AT THIS TIME. DRESSING (BANDAIDS AND STERISTRIPS TO MID ABDOMEN) ARE CLEAN AND DRY,NO BLEEDING NOTED.
--- NOTE | 2019-04-23 13:18 | NUR ---
DISCHARGE INSTRUCTIONS PROVIDED TO SPOUSE. HANDOUTS PROVIDED ON LAPAROSCOPIC CHOLECYSTECTOMY AFTERCARE AND PRESCRIPTION PROVIDED WELL. ALL QUESTIONS/CONCERNS ADDRESSED. INSTRUCTED NOT TO REMOVE STERI STRIPS UNTIL SEEN BY DR ENCINAS.
--- NOTE | 2019-04-23 13:40 | NUR ---
PATIENT DISCHARGED FROM FACILITY VIA WHEELCHAIR (PATIENT CONNECTED TO HIS PERSONAL OXYGEN TANK). PATIENT ASSISTED INTO PRIVATE VEHICLE DRIVEN BY SPOUSE.
== END 2019-04-23 13:40 | disposition home or self-care (01) ==
LOC: DAH 07:54
PROVIDERS: ATTEND Surgery
DX: K80.10 Calculus of gallbladder with chronic cholecystitis without obstruction (principal); J44.9 Chronic obstructive pulmonary disease, unspecified; E78.5 Hyperlipidemia, unspecified; I11.9 Hypertensive heart disease without heart failure; Z95.0 Presence of cardiac pacemaker; I48.91 Unspecified atrial fibrillation; Z88.5 Allergy status to narcotic agent; Z88.8 Allergy status to other drugs, medicaments and biological substances; Z79.01 Long term (current) use of anticoagulants; Z79.82 Long term (current) use of aspirin; Z79.899 Other long term (current) drug therapy
CPT/HCPCS: 36415; 47562; 80048; 80076; 85025; 93005; A4215; A4221; A4222; A4223; A4450; A4600; A4663; A6260; C1769 ×4; J1100; J1644; J2001; J2175 ×2; J2405 ×3; J2704; J2710; J3010; J3490; J7030; J7120 ×2

== ENCOUNTER → 2019-05-19 | Outpatient (CLI) | payer OTHER ==
[~2019-05-19] MED LIST changes: -SODIUM CHLORIDE 0.9% 500ML 500 ML IV SCH
== END | disposition home or self-care (01) ==
LOC: SHCH 08:01
PROVIDERS: ATTEND Internal Medicine Cardiovascular Disease
DX: I71.4 Abdominal aortic aneurysm, without rupture (principal)
CPT/HCPCS: 93978

== ENCOUNTER → 2019-07-13 | Outpatient (CLI) | payer OTHER ==
[~2019-07-13] MED LIST changes: +IOHEXOL-350 50ML VIAL IV ONE
== END | disposition home or self-care (01) ==
LOC: RAH 08:32
PROVIDERS: ATTEND Internal Medicine Cardiovascular Disease
DX: I71.4 Abdominal aortic aneurysm, without rupture (principal)
CPT/HCPCS: 74174; Q9967

== ENCOUNTER → 2019-10-15 | Outpatient (CLI) | payer OTHER ==
[~2019-10-15] MED LIST changes: -ASPI-555 PO; +ASPI-556 PO; +IOHEXOL 350 MG/ML 100ML INFUS..BTL IV ONE; -IOHEXOL-350 50ML VIAL IV ONE
== END | disposition home or self-care (01) ==
LOC: RAH 08:24
PROVIDERS: ATTEND Internal Medicine Gastroenterology
DX: K57.30 Diverticulosis of large intestine without perforation or abscess without bleeding (principal); R63.4 Abnormal weight loss; J44.9 Chronic obstructive pulmonary disease, unspecified
CPT/HCPCS: 71270; 74178; Q9967

== ENCOUNTER 2019-12-21 13:03 | Emergency (ER) | payer OTHER ==
[~2019-12-21 13:03] MED LIST changes: -IOHEXOL 350 MG/ML 100ML INFUS..BTL IV ONE
[2019-12-21 13:30] LABS: BASOPHILS % (AUTO) 0.4 % (0.0-5.0); EOSINOPHILS % (AUTO) 0.9 % (0.0-8.0); HEMATOCRIT 44.5 % (42-54); LYMPHOCYTES % (AUTO) 8.1 % (21.0-51.0); MEAN CORPUSCULAR HEMOGLOBIN 29.1 pg (27.0-33.0); MEAN CORPUSCULAR HGB CONC 32.1 g/dL (32.0-36.0); MEAN CORPUSCULAR VOLUME 90.6 fL (79-99); NEUTROPHILS % (AUTO) 86.3 % (40.0-77.0); PLATELET COUNT (AUTO) 178 K/uL (130-400); RED BLOOD CELL COUNT(AUTO) 4.91 MIL/uL (4.50-6.20); WHITE BLOOD COUNT (AUTO) 11.2 K/uL (4.8-10.8)
[2019-12-21 13:40] LABS: ALBUMIN 3.7 g/dL (3.5-5.0); BILIRUBIN,DIRECT 0.2 mg/dL (0.0-0.3); BILIRUBIN,TOTAL 0.6 mg/dL (0.2-1.0); CREATININE 1.3 mg/dL (0.5-1.5); POTASSIUM 4.8 mmol/L (3.5-5.1); TOTAL PROTEIN, SERUM 7.1 g/dL (6.0-8.3)
[2019-12-21] MEDS ORDERED: ONDANSETRON HCL 4 MG/2 ML VIAL ONE (14:11)
[2019-12-21] MEDS ORDERED: SODIUM CHLORIDE 0.9% 500ML 500 ML IV ONE (14:12)
[2019-12-21] MEDS ORDERED: KETOROLAC TROMETHAMINE 15MG/ML ONE (14:12)
== END 2019-12-21 16:44 | disposition home or self-care (01) ==
LOC: EDH 13:03
DX: K59.00 Constipation, unspecified (principal); I48.91 Unspecified atrial fibrillation; I10 Essential (primary) hypertension; Z87.891 Personal history of nicotine dependence; Z88.6 Allergy status to analgesic agent; Z88.8 Allergy status to other drugs, medicaments and biological substances
CPT/HCPCS: 36415; 74176; 80048; 80076; 82550; 83690; 84484; 85025; 93005; 96374; 96375; 99284; J1885; J2405; J7040; 96361

== ENCOUNTER 2019-12-27 23:24 | Observation (INO) | payer OTHER ==
[~2019-12-27] VITALS: Ht 175.3 cm; Wt 67.9 kg
[2019-12-27] MEDS ORDERED: ONDANSETRON HCL 4 MG/2 ML VIAL ONE (23:32)
[2019-12-27 23:48] LABS: BASOPHILS % (AUTO) 0.5 % (0.0-5.0); EOSINOPHILS % (AUTO) 1.7 % (0.0-8.0); HEMATOCRIT 42.4 % (42-54); MEAN CORPUSCULAR HEMOGLOBIN 28.9 pg (27.0-33.0); MEAN CORPUSCULAR HGB CONC 32.3 g/dL (32.0-36.0); MEAN CORPUSCULAR VOLUME 89.5 fL (79-99); MONOCYTES % (AUTO) 5.6 % (3.0-13.0); NEUTROPHILS % (AUTO) 69.8 % (40.0-77.0); PLATELET COUNT (AUTO) 169 K/uL (130-400); RED BLOOD CELL COUNT(AUTO) 4.74 MIL/uL (4.50-6.20); WHITE BLOOD COUNT (AUTO) 8.3 K/uL (4.8-10.8)
[2019-12-28] VITALS (9 sets, daily range): BP systolic 137–167; BP diastolic 87–110
[2019-12-28 00:02] LABS: CREATININE 1.2 mg/dL (0.5-1.5)
[2019-12-28 00:06] LABS: INR 1.14 (0.85-1.15); PARTIAL THROMBOPLASTIN TIME 29.7 SEC (26.3-35.5); PROTHROMBIN TIME 12.3 SEC (9.6-11.6)
[2019-12-28 00:07] LABS: ALBUMIN 3.7 g/dL (3.5-5.0); BILIRUBIN,TOTAL 0.6 mg/dL (0.2-1.0); TOTAL PROTEIN, SERUM 7.1 g/dL (6.0-8.3)
[2019-12-28 00:23] LABS: APPEARANCE,URINE Clear (CLEAR); BILIRUBIN,URINE Negative (NEGATIVE); COLOR,URINE Yellow (YELLOW); GLUCOSE, URINE (UA) Negative (NEGATIVE); KETONES,URINE Negative (NEGATIVE); LEUKOCYTE ESTERASE ,URINE Negative (NEGATIVE); NITRATE,URINE Negative (NEGATIVE); OCCULT BLOOD,URINE Negative (NEGATIVE); PH,URINE 6.5 (5.0-8.0); PROTEIN,URINE Negative (NEGATIVE)
[2019-12-28] MEDS ORDERED: IOHEXOL 350 MG/ML 100ML INFUS..BTL IV ONE (01:15)
[2019-12-28] MEDS ORDERED: IOHEXOL-350 50ML VIAL IV ONE ×2 (01:36→01:38)
[2019-12-28] MEDS ORDERED: NITROGLYCERIN 0.4 MG SL TAB SL PRN (03:30)
[2019-12-28] MEDS ORDERED: ACETAMINOPHEN 325 MG TAB PO PRN (03:30)
[2019-12-28] MEDS ORDERED: DIPHENHYDRAMINE HCL 25 MG CAPSULE PO PRN (03:30)
[2019-12-28] MEDS ORDERED: ONDANSETRON HCL 4 MG/2 ML VIAL IV PRN (03:30)
[2019-12-28] MEDS ORDERED: HYDRALAZINE HCL 20 MG/ML VIAL IV SCH (04:45)
[2019-12-28] MEDS ORDERED: IPRATROPIUM 0.5 MG/2.5 ML INH IH PRN (04:45)
[2019-12-28 05:25] LABS: APPEARANCE,URINE Clear (CLEAR); BILIRUBIN,URINE Negative (NEGATIVE); COLOR,URINE Yellow (YELLOW); GLUCOSE, URINE (UA) Negative (NEGATIVE); KETONES,URINE Negative (NEGATIVE); LEUKOCYTE ESTERASE ,URINE Negative (NEGATIVE); NITRATE,URINE Negative (NEGATIVE); OCCULT BLOOD,URINE Negative (NEGATIVE); PROTEIN,URINE Negative (NEGATIVE)
[2019-12-28 05:32] LABS: AMPHET/METH SCREEN,URINE NEGATIVE (NEGATIVE); BARBITURATE SCREEN, URINE NEGATIVE (NEGATIVE); BENZODIAZEPINES SCREEN,URINE NEGATIVE (NEGATIVE); CANNABINOID SCREEN,URINE NEGATIVE (NEGATIVE); COCAINE SCREEN,URINE NEGATIVE (NEGATIVE); OPIATE SCREEN,URINE NEGATIVE (NEGATIVE); PHENCYCLIDINE SCREEN,URINE NEGATIVE (NEGATIVE)
[2019-12-28] MEDS ORDERED: METO25TA6 PO (06:04)
[2019-12-28] MEDS ORDERED: PANT40TA54 PO (06:04)
[2019-12-28] MEDS ORDERED: APIX5TAB PO (06:04)
[2019-12-28] MEDS ORDERED: RANO500T2 PO (06:04)
[2019-12-28] MEDS ORDERED: ISOS30TA6 PO (06:04)
[2019-12-28] MEDS ORDERED: LOSA50TA64 PO (06:04)
[2019-12-28 06:20] LABS: MEAN CORPUSCULAR HEMOGLOBIN 28.7 pg (27.0-33.0); MEAN CORPUSCULAR HGB CONC 31.8 g/dL (32.0-36.0); MEAN CORPUSCULAR VOLUME 90.3 fL (79-99); PLATELET COUNT (AUTO) 161 K/uL (130-400); RED BLOOD CELL COUNT(AUTO) 4.87 MIL/uL (4.50-6.20); RED CELL DISTRIBUTION WIDTH 14.1 % (11.0-15.5); WHITE BLOOD COUNT (AUTO) 7.6 K/uL (4.8-10.8)
[2019-12-28] MEDS: SODIUM CHLORIDE 0.9% 500ML 500 ML IV SCH ×4 (06:22→20:45)
[2019-12-28 06:39] LABS: ALBUMIN 3.6 g/dL (3.5-5.0); BILIRUBIN,TOTAL 0.6 mg/dL (0.2-1.0); CREATININE 1.2 mg/dL (0.5-1.5); MAGNESIUM 2.9 mg/dL (1.80-2.40); POTASSIUM 5.5 mmol/L (3.5-5.1); TOTAL PROTEIN, SERUM 7.1 g/dL (6.0-8.3)
[2019-12-28 06:43] LABS: CREATINE KINASE, TOTAL 21 U/L (21-232); MYOGLOBIN 52 ng/mL (10-92); TROPONIN I < 0.04 ng/mL (0.00-0.06)
[2019-12-28 08:41] LABS: LYMPHOCYTES % (MANUAL) 19 % (22-44); MAN.DIFF COMMENT-IMPRESSION MANUAL DIFFERENTIAL; MONOCYTES % (MANUAL) 4 % (2-9); PLATELET MORPHOLOGY COMMENT ADEQUATE; SEGMENTED NEUTROPHILS % 77 % (40-70)
[2019-12-28] MEDS: FAMOTIDINE 20MG TAB 20 MG TAB PO SCH (09:00)
[2019-12-28] MEDS ORDERED: ENOXAPARIN SODIUM 30 MG/0.3 ML SQ SCH (09:00)
--- NOTE | 2019-12-28 13:49 | NUR ---
DCP CM met with pt discussed dc plans. Pt is independent prior to admission, lives at home with spouse. Denies any equipments/services. Feels safe to go back home, spouse able to assist with transportation and needs as necessary. DC plan to home once stable. CM to continue to follow up. Addendum: 12/29/19 at 1351 by JOLEEN GEORGES LVN CM Amended: Links added.
--- NOTE | 2019-12-28 16:22 | NUR ---
[id number] patient on enhanced precautions,received telephone consent from spouse for DEL CID Letter. I faxed DEL CID Letter to [phone] and placed in chart under consent tab.
[2019-12-28] MEDS ORDERED: METOPROLOL TARTRATE 25 MG TAB ONE (18:08)
[2019-12-28] MEDS: LOSARTAN 50 MG TABLET PO SCH (18:14)
[2019-12-28] MEDS: APIXABAN 5 MG TABLET PO SCH (18:16)
[2019-12-28] MEDS ORDERED: ATORVASTATIN CALCIUM 40 MG TABLET PO SCH (21:00)
[2019-12-29] VITALS: BP 118/78
[2019-12-29] MEDS: SODIUM CHLORIDE 0.9% 500ML 500 ML IV SCH ×2 (00:47→06:16)
[2019-12-29 04:00] VITALS: BP_SYST 130; BP_SYST 132; BP_DIAS 52; BP_DIAS 93
[2019-12-29] MEDS: LOSARTAN 50 MG TABLET PO SCH ×2 (05:34→17:10)
[2019-12-29] MEDS: APIXABAN 5 MG TABLET PO SCH ×2 (05:34→17:10)
[2019-12-29] MEDS: ACETAMINOPHEN 325 MG TAB PO PRN ×2 (05:39→13:40)
[2019-12-29 08:02] VITALS: BP 128/86
[2019-12-29] MEDS ORDERED: ISOSORBIDE MONO 30MG TAB SR PO SCH (09:00)
[2019-12-29] MEDS ORDERED: ROFLUMILAST 250 MCG PO SCH (09:00)
[2019-12-29] MEDS ORDERED: ***HM***(Fluticasone/Umeclidin/Vilanter (Trelegy Ellipta 100-62.5- IH SCH (09:00)
[2019-12-29] MEDS ORDERED: PANTOPRAZOLE SODIUM 40 MG TABLET.DR PO SCH (09:00)
[2019-12-29] MEDS: FAMOTIDINE 20MG TAB 20 MG TAB PO SCH (09:12)
[2019-12-29 11:05] VITALS: BP 123/80
--- NOTE | 2019-12-29 11:21 | NUR ---
COVID NEGATIVE. CALLED ART TO NOTIFY NEGATIVE COVID AND OK TO INTERROGATE PACEMAKER. ART TO COME AND INTERROGATE PACEMAKER.
--- NOTE | 2019-12-29 14:40 | NUR ---
ART IN TO INTERROGATE PACEMAKER. REPORTS NO ABNORMALITIES AND LEAVING NOTES FOR DR. MADRIGAL WHO HE REPORTS PLACED PACEMAKER.
[2019-12-29 16:17] VITALS: BP 131/86
[2019-12-29] MEDS ORDERED: METOPROLOL TARTRATE 25 MG TAB PO SCH (18:00)
== END 2019-12-29 17:55 | disposition home or self-care (01) ==
LOC: EDH 23:24 → EDHIP 12-28 03:25 → INTOOBSV 12-28 03:25 → 3AH 12-28 04:10 → 3BH 12-28 08:44
PROVIDERS: ADMIT Internal Medicine; ATTEND Internal Medicine
DX: R42 Dizziness and giddiness (principal); Z20.828 Contact with and (suspected) exposure to other viral communicable diseases; I48.20 Chronic atrial fibrillation, unspecified; J44.9 Chronic obstructive pulmonary disease, unspecified; I25.10 Atherosclerotic heart disease of native coronary artery without angina pectoris; Z95.0 Presence of cardiac pacemaker
CPT/HCPCS: 36415 ×2; 70496; 70498; 71045; 80053 ×2; 80061; 80305; 81003; 82550 ×2; 83690; 83735; 83874; 84132; 84484 ×2; 85025 ×2; 85610; 85730; 87426; 93005; 94640; 94664; 96360; 96361 ×2; 96372; 99285; G0378 ×22; J1650; J2405; J7040; Q9967 ×3; U0003

== ENCOUNTER 2020-01-04 10:43 | Emergency (ER) | payer OTHER ==
[~2020-01-04 10:43] MED LIST changes: -ASPI-556 PO; -DALIRESP; -DRON400T2 PO; +ISOS30TA6 PO; +LOSA50TA64 PO; +METO25TA6 PO; +PANT40TA54 PO
== END 2020-01-04 12:47 | disposition home or self-care (01) ==
LOC: EDH 10:43
DX: G24.3 Spasmodic torticollis (principal); I10 Essential (primary) hypertension; I48.91 Unspecified atrial fibrillation; Z79.899 Other long term (current) drug therapy; Z88.6 Allergy status to analgesic agent
CPT/HCPCS: 71045; 93005

== ENCOUNTER 2020-05-13 21:37 | Emergency (ER) | payer MEDICARE, OTHER ==
[~2020-05-13 21:37] MED LIST changes: -ISOS30TA6 PO; +ISOS30TA92 PO
[2020-05-13 22:09] LABS: BASOPHILS % (AUTO) 0.3 % (0.0-5.0); EOSINOPHILS % (AUTO) 0.3 % (0.0-8.0); HEMATOCRIT 48.8 % (42-54); LYMPHOCYTES % (AUTO) 5.8 % (21.0-51.0); MEAN CORPUSCULAR VOLUME 93.8 fL (79-99); MONOCYTES % (AUTO) 5.4 % (3.0-13.0); NEUTROPHILS % (AUTO) 87.7 % (40.0-77.0); PLATELET COUNT (AUTO) 207 K/uL (130-400); RED CELL DISTRIBUTION WIDTH 13.3 % (11.0-15.5); WHITE BLOOD COUNT (AUTO) 23.3 K/uL (4.8-10.8)
[2020-05-13] MEDS ORDERED: 0.9%NACL 50ML 50 ML IV ONE (22:13)
[2020-05-13 22:20] LABS: CREATININE 1.1 mg/dL (0.5-1.5); POTASSIUM 4.1 mmol/L (3.5-5.1)
[2020-05-13 22:23] LABS: INR 1.13 (0.85-1.15); PROTHROMBIN TIME 12.2 SEC (9.6-11.6)
[2020-05-13 22:24] LABS: PARTIAL THROMBOPLASTIN TIME 25.9 SEC (26.3-35.5)
[2020-05-13 22:25] LABS: ALBUMIN 4.3 g/dL (3.5-5.0); BILIRUBIN,TOTAL 0.7 mg/dL (0.2-1.0); TOTAL PROTEIN, SERUM 7.9 g/dL (6.0-8.3)
[2020-05-13 23:08] LABS: BILIRUBIN,URINE Negative (NEGATIVE); COLOR,URINE Yellow (YELLOW); GLUCOSE, URINE (UA) Negative (NEGATIVE); KETONES,URINE Negative (NEGATIVE); LEUKOCYTE ESTERASE ,URINE Negative (NEGATIVE); NITRATE,URINE Negative (NEGATIVE); OCCULT BLOOD,URINE Trace (NEGATIVE); PROTEIN,URINE Trace mg/dL (NEGATIVE)
[2020-05-13 23:09] LABS: APPEARANCE,URINE CLEAR (CLEAR)
[2020-05-13 23:17] LABS: BACTERIA,URINE Few /HPF (None Seen); SQUAMOUS EPITHELIAL CELL,UR 0-2 /HPF (0-2)
[2020-05-13] MEDS ORDERED: IOHEXOL-350 75 ML VIAL IV ONE (23:19)
[2020-05-14] MEDS ORDERED: ZOSYN 3.375GM+NS 50ML 50 ML IV ONE (00:04)
[2020-05-14] MEDS ORDERED: ACETAMINOPHEN 325 MG TAB PO PRN ×2 (01:45)
[2020-05-14] MEDS ORDERED: 0.9%NACL 1000ML 1,000 ML IV SCH (01:45)
[2020-05-14 02:23] LABS: MAGNESIUM 1.9 mg/dL (1.80-2.40); PHOSPHORUS 3.3 mg/dL (2.5-4.9)
[2020-05-14] MEDS ORDERED: LIDOCAINE HCL 2% VISCOUS 15 ML UDCUP ONE (02:30)
[2020-05-14] MEDS ORDERED: METOCLOPRAMIDE 10 MG/2 ML VIAL IVP SCH (06:00)
[2020-05-14] MEDS ORDERED: ZOSYN 3.375GM+NS 50ML 50 ML IV SCH (08:00)
[2020-05-14] MEDS ORDERED: FAMOTIDINE 20MG VIAL IV SCH (09:00)
[2020-05-14] MEDS ORDERED: ENOXAPARIN SODIUM 30 MG/0.3 ML SQ SCH (09:00)
== END 2020-05-14 03:29 | disposition left against medical advice (07) ==
LOC: EDH 21:37 → EDHIP 05-14 01:45 → UNDOADMIN 05-14 01:45 → EDH 05-14 03:29
DX: R11.2 Nausea with vomiting, unspecified (principal); I48.91 Unspecified atrial fibrillation; I10 Essential (primary) hypertension; Z88.5 Allergy status to narcotic agent; Z88.9 Allergy status to unspecified drugs, medicaments and biological substances
CPT/HCPCS: 36415 ×2; 71045; 74177; 80053; 81001; 83605 ×2; 83690; 83735; 84100; 84145; 84484; 85025; 85610; 85730; 86140; 87040 ×2; 87077; 87186; 93005; 96365; 96375; 99285; J2543; Q9967

== ENCOUNTER → 2020-06-29 | Outpatient (CLI) | payer MEDICARE | END | disposition home or self-care (01) | LOC: SHCH 07:48 | PROVIDERS: ATTEND Internal Medicine Cardiovascular Disease | DX: I65.23 Occlusion and stenosis of bilateral carotid arteries (principal); I05.9 Rheumatic mitral valve disease, unspecified; I71.4 Abdominal aortic aneurysm, without rupture; I25.5 Ischemic cardiomyopathy | CPT/HCPCS: 93306; 93356; 93880; 93978 ==

== ENCOUNTER 2020-07-10 13:24 | Inpatient (IN) | payer MEDICARE ==
[~2020-07-10] VITALS: Ht 175.3 cm; Wt 62.9 kg
[2020-07-10] MEDS ORDERED: MORPHINE 4 MG SYG ONE (13:53)
[2020-07-10] MEDS ORDERED: ONDANSETRON 4MG INJ ONE (13:53)
[2020-07-10] MEDS ORDERED: 0.9%NACL 1000ML 1,000 ML IV ONE (13:54)
[2020-07-10 14:07] LABS: BASOPHILS % (AUTO) 0.3 % (0.0-5.0); EOSINOPHILS % (AUTO) 0.4 % (0.0-8.0); HEMATOCRIT 39.6 % (42-54); LYMPHOCYTES % (AUTO) 3.7 % (21.0-51.0); MEAN CORPUSCULAR HEMOGLOBIN 29.5 pg (27.0-33.0); MEAN CORPUSCULAR HGB CONC 32.1 g/dL (32.0-36.0); MEAN CORPUSCULAR VOLUME 91.9 fL (79-99); MONOCYTES % (AUTO) 6.8 % (3.0-13.0); NEUTROPHILS % (AUTO) 88.7 % (40.0-77.0); PLATELET COUNT (AUTO) 141 K/uL (130-400); RED BLOOD CELL COUNT(AUTO) 4.31 MIL/uL (4.50-6.20); RED CELL DISTRIBUTION WIDTH 13.1 % (11.0-15.5); WHITE BLOOD COUNT (AUTO) 7.6 K/uL (4.8-10.8)
[2020-07-10 14:21] LABS: CREATININE 1.2 mg/dL (0.5-1.5); POTASSIUM 4.8 mmol/L (3.5-5.1)
[2020-07-10] MEDS ORDERED: IOHEXOL 350 MG/ML 100ML INFUS..BTL IV ONE (14:21)
[2020-07-10 14:26] LABS: ALBUMIN 3.5 g/dL (3.5-5.0); BILIRUBIN,TOTAL 0.8 mg/dL (0.2-1.0); TOTAL PROTEIN, SERUM 6.9 g/dL (6.0-8.3)
[2020-07-10 14:56] LABS: APPEARANCE,URINE Clear (CLEAR); BILIRUBIN,URINE Negative (NEGATIVE); COLOR,URINE Dark Yellow (YELLOW); GLUCOSE, URINE (UA) Negative (NEGATIVE); KETONES,URINE Negative (NEGATIVE); LEUKOCYTE ESTERASE ,URINE Trace (NEGATIVE); NITRATE,URINE Negative (NEGATIVE); OCCULT BLOOD,URINE Negative (NEGATIVE); PROTEIN,URINE POS 1+ mg/dL (NEGATIVE)
[2020-07-10 15:08] LABS: BACTERIA,URINE Few /HPF (None Seen); MUCUS,URINE Moderate LPF (None Seen); RBC,URINE 0-1 /HPF (0-1); SQUAMOUS EPITHELIAL CELL,UR Few /HPF (0-2)
[2020-07-10 15:10] LABS: HYALINE CASTS, URINE 0-1 /LPF (0-1 /LPF)
[2020-07-10] MEDS: ZOSYN 3.375GM+NS 50ML 50 ML IV SCH (18:15)
[2020-07-10] MEDS ORDERED: ONDANSETRON 4MG INJ IV PRN (18:15)
[2020-07-10] MEDS ORDERED: NITROGLYCERIN 0.4 MG SL TAB SL PRN (18:15)
[2020-07-10] MEDS: SOLU-MEDROL 40MG VIAL IVP SCH (18:15)
[2020-07-10] MEDS ORDERED: GUAIFENESIN-DM 200/20 MG 10 ML PO PRN (18:15)
[2020-07-10] MEDS ORDERED: LACTATED RINGERS 1000ML 1,000 ML IV SCH (18:15)
[2020-07-10] MEDS ORDERED: MAG/ALUM/SIMETH 30 ML UDCUP PO PRN (18:15)
[2020-07-10] MEDS ORDERED: ACETAMINOPHEN 325 MG TAB PO PRN ×2 (18:15)
[2020-07-10] MEDS ORDERED: LACTULOSE 20 GM/30 ML UDCUP PO PRN (18:15)
[2020-07-10] MEDS ORDERED: DiphenhydrAMINE HCL 50 MG/ML VIAL IV PRN (18:15)
[2020-07-10] MEDS ORDERED: DIPHENHYDRAMINE HCL 25 MG CAPSULE PO PRN (18:15)
[2020-07-10] MEDS ORDERED: IPRATROPIUM/ALBUTEROL SULFATE 3 ML SOLUTION IH ONE (18:32)
[2020-07-10 18:34] LABS: HEMATOCRIT 39.1 % (42-54); MEAN CORPUSCULAR HEMOGLOBIN 29.1 pg (27.0-33.0); MEAN CORPUSCULAR HGB CONC 31.5 g/dL (32.0-36.0); MEAN CORPUSCULAR VOLUME 92.4 fL (79-99); RED BLOOD CELL COUNT(AUTO) 4.23 MIL/uL (4.50-6.20); RED CELL DISTRIBUTION WIDTH 13.2 % (11.0-15.5); WHITE BLOOD COUNT (AUTO) 6.2 K/uL (4.8-10.8)
[2020-07-10 18:44] LABS: CREATININE 1.2 mg/dL (0.5-1.5); POTASSIUM 4.9 mmol/L (3.5-5.1)
[2020-07-10] MEDS: ASPIRIN 81MG CHEW TAB PO SCH (18:45)
[2020-07-10] MEDS ORDERED: ZOSYN 3.375GM+NS 50ML 50 ML IV ONE ×2 (18:46→20:51)
[2020-07-10] MEDS ORDERED: SOLU-MEDROL 40MG VIAL ONE ×2 (18:46→20:50)
[2020-07-10] MEDS ORDERED: 0.9% NACL 250ML 250 ML IV ONE (18:47)
[2020-07-10 18:59] LABS: ALBUMIN 3.3 g/dL (3.5-5.0); BILIRUBIN,TOTAL 0.7 mg/dL (0.2-1.0); CRP QUANTITATIVE 89.5 mg/L (0.00-9.0); TOTAL PROTEIN, SERUM 6.6 g/dL (6.0-8.3)
[2020-07-10] MEDS ORDERED: FAMOTIDINE 20MG VIAL IV ONE (20:51)
[2020-07-10] MEDS ORDERED: HEPARIN 5,000 UNIT VIAL ONE (20:51)
[2020-07-10] MEDS: IPRATROPIUM/ALBUTEROL SULFATE 3 ML SOLUTION IH SCH (22:27)
[2020-07-11] VITALS (7 sets, daily range): BP systolic 115–147; BP diastolic 56–74
[2020-07-11] MEDS: FAMOTIDINE 20MG VIAL IV SCH ×2 (00:42→19:37)
[2020-07-11] MEDS: HEPARIN 5,000 UNIT VIAL SQ SCH ×2 (00:45→10:34)
[2020-07-11] MEDS ORDERED: ASPI-1197 PO (01:38)
[2020-07-11] MEDS ORDERED: AMLO5TAB5 PO (01:41)
[2020-07-11] MEDS ORDERED: LINA145C PO (01:42)
[2020-07-11] MEDS ORDERED: BISO10TA16 PO (01:48)
[2020-07-11] MEDS ORDERED: ALBU1.252 IH (01:48)
[2020-07-11] MEDS: IPRATROPIUM/ALBUTEROL SULFATE 3 ML SOLUTION IH SCH ×6 (01:51→22:19)
[2020-07-11] MEDS: SOLU-MEDROL 40MG VIAL IVP SCH ×3 (03:08→18:14)
[2020-07-11] MEDS: ZOSYN 3.375GM+NS 50ML 50 ML IV SCH ×3 (03:08→18:15)
[2020-07-11 06:26] LABS: BASOPHILS % (AUTO) 0.1 % (0.0-5.0); EOSINOPHILS % (AUTO) 1.9 % (0.0-8.0); HEMATOCRIT 37.2 % (42-54); LYMPHOCYTES % (AUTO) 2.7 % (21.0-51.0); MEAN CORPUSCULAR HEMOGLOBIN 29.6 pg (27.0-33.0); MEAN CORPUSCULAR HGB CONC 32.3 g/dL (32.0-36.0); MEAN CORPUSCULAR VOLUME 91.6 fL (79-99); MONOCYTES % (AUTO) 1.5 % (3.0-13.0); NEUTROPHILS % (AUTO) 93.5 % (40.0-77.0); PLATELET COUNT (AUTO) 122 K/uL (130-400); RED BLOOD CELL COUNT(AUTO) 4.06 MIL/uL (4.50-6.20); RED CELL DISTRIBUTION WIDTH 13.1 % (11.0-15.5); WHITE BLOOD COUNT (AUTO) 7.5 K/uL (4.8-10.8)
[2020-07-11 06:49] LABS: BILIRUBIN,TOTAL 0.7 mg/dL (0.2-1.0); CREATININE 1.2 mg/dL (0.5-1.5); POTASSIUM 4.1 mmol/L (3.5-5.1); TOTAL PROTEIN, SERUM 6.4 g/dL (6.0-8.3)
[2020-07-11] MEDS: ASPIRIN 81MG CHEW TAB PO SCH (10:25)
[2020-07-11] MEDS: DOXYCYCLINE 100MG+NS 250ML 250 ML IV SCH (19:37)
[2020-07-11] MEDS: ISOSORBIDE MONO 30MG SR TAB PO SCH (20:07)
[2020-07-11] MEDS: APIXABAN 5 MG TABLET PO SCH (20:27)
[2020-07-12] MEDS: ZOSYN 3.375GM+NS 50ML 50 ML IV SCH ×2 (01:27→10:36)
[2020-07-12] MEDS: SOLU-MEDROL 40MG VIAL IVP SCH ×3 (01:28→20:41)
[2020-07-12] MEDS: IPRATROPIUM/ALBUTEROL SULFATE 3 ML SOLUTION IH SCH ×3 (02:19→10:11)
[2020-07-12 03:49] VITALS: BP_SYST 104; BP_SYST 118; BP_DIAS 54; BP_DIAS 64
[2020-07-12 04:33] LABS: BASOPHILS % (AUTO) 0.1 % (0.0-5.0); HEMATOCRIT 35.4 % (42-54); LYMPHOCYTES % (AUTO) 3.2 % (21.0-51.0); MEAN CORPUSCULAR HEMOGLOBIN 29.1 pg (27.0-33.0); MEAN CORPUSCULAR HGB CONC 32.2 g/dL (32.0-36.0); MEAN CORPUSCULAR VOLUME 90.3 fL (79-99); MONOCYTES % (AUTO) 3.1 % (3.0-13.0); NEUTROPHILS % (AUTO) 93.1 % (40.0-77.0); PLATELET COUNT (AUTO) 143 K/uL (130-400); RED BLOOD CELL COUNT(AUTO) 3.92 MIL/uL (4.50-6.20); WHITE BLOOD COUNT (AUTO) 13.3 K/uL (4.8-10.8)
[2020-07-12 04:41] LABS: ALBUMIN 2.8 g/dL (3.5-5.0); BILIRUBIN,TOTAL 0.5 mg/dL (0.2-1.0); CREATININE 1.2 mg/dL (0.5-1.5); PHOSPHORUS 2.8 mg/dL (2.5-4.9); POTASSIUM 3.6 mmol/L (3.5-5.1)
[2020-07-12 04:46] LABS: B-TYPE NATRIURETIC PEPTIDE 138 pg/mL (0-100)
[2020-07-12] MEDS: DOXYCYCLINE 100MG+NS 250ML 250 ML IV SCH (05:39)
[2020-07-12 08:20] VITALS: BP 144/63
[2020-07-12] MEDS: LINZESS 145 MCG PO SCH (09:00)
[2020-07-12] MEDS: ASPIRIN 81MG CHEW TAB PO SCH (09:15)
[2020-07-12] MEDS: ISOSORBIDE MONO 30MG SR TAB PO SCH ×2 (09:16→17:45)
[2020-07-12] MEDS: PANTOPRAZOLE 40 MG TAB DR PO SCH (09:16)
[2020-07-12] MEDS: APIXABAN 5 MG TABLET PO SCH ×2 (09:17→20:41)
[2020-07-12] MEDS: Bisoprolol Fumarate 10 MG PO SCH (09:18)
[2020-07-12 12:16] VITALS: BP 136/70
[2020-07-12 16:42] VITALS: BP 139/77
[2020-07-12] MEDS: IPRATROPIUM/ALBUTEROL SULFATE 3 ML SOLUTION IH PRN (18:22)
[2020-07-12 19:00] VITALS: BP 142/83
[2020-07-12] MEDS: FAMOTIDINE 20MG VIAL IV SCH (20:41)
[2020-07-13] VITALS: BP 144/86
[2020-07-13] MEDS: IPRATROPIUM/ALBUTEROL SULFATE 3 ML SOLUTION IH PRN ×2 (00:29→07:21)
[2020-07-13 04:00] VITALS: BP 135/78
[2020-07-13 04:50] LABS: BASOPHILS % (AUTO) 0.1 % (0.0-5.0); HEMATOCRIT 36.7 % (42-54); LYMPHOCYTES % (AUTO) 3.2 % (21.0-51.0); MEAN CORPUSCULAR HEMOGLOBIN 29.4 pg (27.0-33.0); MEAN CORPUSCULAR HGB CONC 32.2 g/dL (32.0-36.0); MEAN CORPUSCULAR VOLUME 91.5 fL (79-99); MONOCYTES % (AUTO) 2.2 % (3.0-13.0); NEUTROPHILS % (AUTO) 93.3 % (40.0-77.0); PLATELET COUNT (AUTO) 166 K/uL (130-400); RED BLOOD CELL COUNT(AUTO) 4.01 MIL/uL (4.50-6.20); RED CELL DISTRIBUTION WIDTH 13.1 % (11.0-15.5); WHITE BLOOD COUNT (AUTO) 17.4 K/uL (4.8-10.8)
[2020-07-13 05:21] LABS: ALBUMIN 2.9 g/dL (3.5-5.0); BILIRUBIN,TOTAL 0.4 mg/dL (0.2-1.0); CREATININE 1.1 mg/dL (0.5-1.5); POTASSIUM 4.1 mmol/L (3.5-5.1); TOTAL PROTEIN, SERUM 6.2 g/dL (6.0-8.3)
[2020-07-13] MEDS: ISOSORBIDE MONO 30MG SR TAB PO SCH (06:23)
[2020-07-13 08:00] VITALS: BP 187/103
[2020-07-13] MEDS: SOLU-MEDROL 40MG VIAL IVP SCH (08:49)
[2020-07-13] MEDS: APIXABAN 5 MG TABLET PO SCH (08:50)
[2020-07-13] MEDS: ASPIRIN 81MG CHEW TAB PO SCH (08:50)
[2020-07-13] MEDS: PANTOPRAZOLE 40 MG TAB DR PO SCH (08:50)
[2020-07-13] MEDS: Bisoprolol Fumarate 10 MG PO SCH (08:56)
[2020-07-13] MEDS ORDERED: PREDNISONE 20 MG TABLET PO SCH (09:00)
[2020-07-13] MEDS ORDERED: LEVOFLOXACIN 500 MG TABLET PO SCH (09:00)
[2020-07-13] MEDS ORDERED: LOSARTAN 25 MG TABLET PO SCH (09:00)
[2020-07-13] MEDS: LINZESS 145 MCG PO SCH (09:00)
[2020-07-13] MEDS ORDERED: PRED50TA2 PO (10:51)
[2020-07-13] MEDS ORDERED: LOSA50TA64 PO (10:51)
[2020-07-13] MEDS ORDERED: Isosorbide Mono 30MG Tab Sr PO (10:51)
[2020-07-13] MEDS ORDERED: LEVO500T90 PO (10:51)
[2020-07-13 12:00] VITALS: BP 155/88
== END 2020-07-13 15:33 | disposition home or self-care (01) | DRG 189 ==
LOC: EDH 13:24 → EDHIP 18:12 → 4CH 20:40
PROVIDERS: ADMIT Family Medicine; ATTEND Family Medicine
DX: J96.21 Acute and chronic respiratory failure with hypoxia (principal); J44.1 Chronic obstructive pulmonary disease with (acute) exacerbation; I48.20 Chronic atrial fibrillation, unspecified; Z95.5 Presence of coronary angioplasty implant and graft; I50.9 Heart failure, unspecified; I11.0 Hypertensive heart disease with heart failure; Z83.3 Family history of diabetes mellitus; Z82.0 Family history of epilepsy and other diseases of the nervous system; Z82.5 Family history of asthma and other chronic lower respiratory diseases; Z82.3 Family history of stroke; Z95.1 Presence of aortocoronary bypass graft; Z87.891 Personal history of nicotine dependence; Z99.81 Dependence on supplemental oxygen; Z79.01 Long term (current) use of anticoagulants; D72.810 Lymphocytopenia; I25.10 Atherosclerotic heart disease of native coronary artery without angina pectoris; Z86.79 Personal history of other diseases of the circulatory system; Z95.0 Presence of cardiac pacemaker
CPT/HCPCS: 36415; 71046; 74177; 80053; 81001; 82150; 82948; 83605; 83690; 83735; 83880; 84100; 84145; 84484; 85025; 85027; 86140; 93005; 94640; 94664; G0378; J1644; J2270; J2405; J2543; J2920; J3490; J7030; J7050; Q9967

== ENCOUNTER → 2020-07-19 | Outpatient (CLI) | payer MEDICARE ==
[~2020-07-19] MED LIST changes: +ALBU1.252 IH; +ASPI-1197 PO; +BISO10TA PO; +IOHEXOL 350 MG/ML 100ML INFUS..BTL IV ONE; -ISOS30TA92 PO; +Isosorbide Mono 30MG Tab Sr PO; +LEVO500T89 PO; +LINA145C PO; -METO25TA6 PO; +PRED50TA2 PO
== END | disposition home or self-care (01) ==
LOC: RAH 09:01
PROVIDERS: ATTEND Internal Medicine Cardiovascular Disease
DX: I71.4 Abdominal aortic aneurysm, without rupture (principal); J44.9 Chronic obstructive pulmonary disease, unspecified; I70.0 Atherosclerosis of aorta; R91.1 Solitary pulmonary nodule; K59.00 Constipation, unspecified; K57.30 Diverticulosis of large intestine without perforation or abscess without bleeding; Z90.49 Acquired absence of other specified parts of digestive tract
CPT/HCPCS: 74174; Q9967

== ENCOUNTER 2021-05-08 01:35 | Emergency (ER) | payer MEDICARE ==
[~2021-05-08] VITALS: Ht 175.3 cm; Wt 68.0 kg
[~2021-05-08 01:35] MED LIST changes: +AMOX-426 PO; -BISO10TA PO; +BISO10TA16 PO; -IOHEXOL 350 MG/ML 100ML INFUS..BTL IV ONE; -LEVO500T89 PO; +LEVO500T90 PO
[2021-05-08 03:17] LABS: HEMATOCRIT 45.5 % (42-54); MEAN CORPUSCULAR HGB CONC 30.3 g/dL (32.0-36.0); MEAN CORPUSCULAR VOLUME 92.3 fL (79-99); PLATELET COUNT (AUTO) 189 K/uL (130-400); RED BLOOD CELL COUNT(AUTO) 4.93 MIL/uL (4.50-6.20); WHITE BLOOD COUNT (AUTO) 9.2 K/uL (4.8-10.8)
[2021-05-08 03:52] LABS: LYMPHOCYTES % (AUTO) 16.7 % (21.0-51.0); NEUTROPHILS % (AUTO) 74.1 % (40.0-77.0)
[2021-05-08 03:53] LABS: BASOPHILS % (AUTO) 0.2 % (0.0-5.0); EOSINOPHILS % (AUTO) 0.6 % (0.0-8.0); MONOCYTES % (AUTO) 8.1 % (3.0-13.0)
[2021-05-08 04:03] VITALS: BP 152/88
[2021-05-08 04:04] LABS: INR 1.12 (0.85-1.15); PROTHROMBIN TIME 12.1 SEC (9.6-11.6)
== END 2021-05-08 04:09 | disposition home or self-care (01) ==
LOC: EDH 01:35
DX: S01.512A Laceration without foreign body of oral cavity, initial encounter (principal); D68.59 Other primary thrombophilia; I25.10 Atherosclerotic heart disease of native coronary artery without angina pectoris; J44.9 Chronic obstructive pulmonary disease, unspecified; Z79.01 Long term (current) use of anticoagulants; Z79.52 Long term (current) use of systemic steroids; Z79.82 Long term (current) use of aspirin; Z79.899 Other long term (current) drug therapy; Z88.5 Allergy status to narcotic agent; Z95.1 Presence of aortocoronary bypass graft; Z95.810 Presence of automatic (implantable) cardiac defibrillator; X58.XXXA Exposure to other specified factors, initial encounter; Y93.89 Activity, other specified; Y92.89 Other specified places as the place of occurrence of the external cause; Y99.8 Other external cause status
CPT/HCPCS: 36415; 85025; 85610

== ENCOUNTER → 2021-09-26 | Outpatient (CLI) | payer MEDICARE ==
[2021-09-26 12:31] LABS: BASOPHILS % (AUTO) 0.4 % (0.0-5.0); EOSINOPHILS % (AUTO) 1.9 % (0.0-8.0); LYMPHOCYTES % (AUTO) 9.9 % (21.0-51.0); MEAN CORPUSCULAR HEMOGLOBIN 29.4 pg (27.0-33.0); MEAN CORPUSCULAR HGB CONC 31.5 g/dL (32.0-36.0); MEAN CORPUSCULAR VOLUME 93.4 fL (79-99); MONOCYTES % (AUTO) 8.5 % (3.0-13.0); NEUTROPHILS % (AUTO) 78.2 % (40.0-77.0); PLATELET COUNT (AUTO) 167 K/uL (130-400); RED BLOOD CELL COUNT(AUTO) 4.39 MIL/uL (4.50-6.20); RED CELL DISTRIBUTION WIDTH 13.4 % (11.0-15.5); WHITE BLOOD COUNT (AUTO) 9.7 K/uL (4.8-10.8)
[2021-09-26 12:40] LABS: ALBUMIN 3.7 g/dL (3.5-5.0); BILIRUBIN,TOTAL 0.4 mg/dL (0.2-1.0); CREATININE 1.2 mg/dL (0.5-1.5); POTASSIUM 5.1 mmol/L (3.5-5.1); TOTAL PROTEIN, SERUM 7.1 g/dL (6.0-8.3)
[2021-09-26 13:12] LABS: B-TYPE NATRIURETIC PEPTIDE 400 pg/mL (0-100)
== END | disposition home or self-care (01) ==
LOC: LAB 09:46
PROVIDERS: ATTEND Internal Medicine Cardiovascular Disease
DX: J44.9 Chronic obstructive pulmonary disease, unspecified (principal); I49.5 Sick sinus syndrome
CPT/HCPCS: 36415; 80053; 83880; 85025

== ENCOUNTER → 2022-02-01 | Outpatient (CLI) | payer MEDICARE ==
[~2022-02-01] MED LIST changes: +LEVO-70 PO; -LEVO500T90 PO
== END | disposition home or self-care (01) ==
LOC: SHCH 07:35
PROVIDERS: ATTEND Internal Medicine Cardiovascular Disease
DX: I71.40 Abdominal aortic aneurysm, without rupture, unspecified (principal); I73.9 Peripheral vascular disease, unspecified; Z95.828 Presence of other vascular implants and grafts
CPT/HCPCS: 93925; 93978